=== PATIENT | male | born 1960 | race Caucasian/White ===

== ENCOUNTER → 2023-12-11 07:16 | Outpatient (REF) | payer OTHER, SELFPAY ==
[2023-12-11 08:49] LABS: Blood Urea Nitrogen 21 mg/dl (9-20); Calcium 9.8 mg/dl (8.4-10.2); Carbon Dioxide 28 mmol/L (22-30); Chloride 105 mmol/L (98-107); Glucose 119 mg/dl (70-99); Potassium 4.6 mmol/L (3.5-5.1); Sodium 141 mmol/L (135-145); eGFR > 60.00
== END ==
LOC: REG 07:16
PROVIDERS: ATTENDING PHYSICIAN Internal Medicine Cardiovascular Disease
DX: I10 Essential (primary) hypertension (principal)
CPT/HCPCS: 36415; 80048

== ENCOUNTER → 2023-12-13 14:31 | Outpatient (REF) | payer OTHER, SELFPAY | LOC: RCS 14:31 | PROVIDERS: ATTENDING PHYSICIAN Internal Medicine Cardiovascular Disease; FAMILY PHYSICIAN Family Medicine | DX: I34.0 Nonrheumatic mitral (valve) insufficiency (principal); I25.5 Ischemic cardiomyopathy; I35.1 Nonrheumatic aortic (valve) insufficiency | CPT/HCPCS: 93306 ==

== ENCOUNTER → 2023-12-14 13:32 | Outpatient (REF) | payer OTHER, SELFPAY | LOC: RAD 13:32 | PROVIDERS: ATTENDING PHYSICIAN Internal Medicine Cardiovascular Disease; FAMILY PHYSICIAN Nurse Practitioner Family | DX: N28.89 Other specified disorders of kidney and ureter (principal) | CPT/HCPCS: 74178; Q9967 ==

== ENCOUNTER → 2024-02-14 08:08 | Outpatient (REF) | payer OTHER, SELFPAY | LOC: DHCBC/DCA 08:08 | PROVIDERS: ATTENDING PHYSICIAN Internal Medicine Cardiovascular Disease; FAMILY PHYSICIAN Family Medicine | DX: E78.5 Hyperlipidemia, unspecified (principal); I25.2 Old myocardial infarction; I25.10 Atherosclerotic heart disease of native coronary artery without angina pectoris; R93.1 Abnormal findings on diagnostic imaging of heart and coronary circulation | CPT/HCPCS: 78452; 93017; A9500; J2785 ==

== ENCOUNTER 2024-07-03 07:39 | Day surgery (SDC) | payer OTHER, SELFPAY ==
[2024-06-12 08:46] LABS: Hematocrit 43.3 % (39.0-52.0); Hemoglobin 14.8 g/dL (13.0-18.0); Mean Corp Hgb Conc. 34.2 g/dL (33.0-37.0); Mean Corpuscular Hgb 30.6 pg (27.0-31.0); Mean Corpuscular Volume 89.5 fL (80.0-94.0); Mean Platelet Volume 9.9 fL (7.4-10.4); Platelet Count 210 10^3/uL (130-400); Red Blood Cell Count 4.84 10^6/uL (4.70-6.10); Red Cell Dist. Width 12.7 % (11.5-14.5); White Blood Cell Count 7.1 10^3/uL (4.8-10.8)
[2024-06-12 09:26] LABS: Blood Urea Nitrogen 23 mg/dl (9-20); Calcium 8.8 mg/dl (8.4-10.2); Carbon Dioxide 26 mmol/L (22-30); Chloride 106 mmol/L (98-107); Glucose 104 mg/dl (70-99); Potassium 4.2 mmol/L (3.5-5.1); Sodium 139 mmol/L (135-145); eGFR > 60.00
[2024-06-12 13:39] VITALS: BMI 26.2
[2024-07-03] VITALS (7 sets, daily range): BP systolic 121–137; BP diastolic 60–73; BMI 26.2
--- NOTE | 2024-07-03 06:43 | HP.FOC2 ---
Focused History & Physical
Chief Complaint
HPI:
Chief Complaint: Left inguinal hernia
HPI / Indication for Planned Procedure: Patient is a 63-year-old male recently seen in outpatient surgical evaluation secondary to a large left inguinal hernia containing sigmoid colon. Patient has been following his hernia for many years. It has
slowly increased in size over the years and extends down into the left scrotal region. Hernia is always protuberant. He rarely has episodes of pain or discomfort in the area. CT imaging confirmed a large left indirect inguinal scrotal hernia
containing unobstructed loop of sigmoid colon without associated inflammatory or obstructive changes.
Relevant Past Medical History: Other (Mitral regurgitation, history of [place], ischemic cardiomyopathy, hyperlipidemia, hypertension, CAD)
Relevant Social History: Negative
Relevant Family History: Negative
Relevant Past Surgical History: Positive for (Cardiac catheterization with stent placement)
Review of Systems
Review of Pertinent Systems: All Systems Negative
Medication
See Medication form for detailed medications: Yes
Medication List (including Herbals & OTC):
aspirin 81 mg tablet,delayed release 81 mg PO DAILY ##0 03/11/15
amlodipine 10 mg tablet 10 mg PO HS 03/09/24
carvedilol 25 mg tablet 25 mg PO BID 03/09/24
doxazosin 1 mg tablet 1 mg PO HS 03/09/24
lisinopril 20 mg tablet 20 mg PO BID 03/09/24
Allergy Medicine 1 tab PO DAILY 06/26/24
Vitamin C 1 tab PO DAILY 06/26/24
famotidine 20 mg tablet 20 mg PO DAILY 06/26/24
multivitamin 1 tab PO DAILY 06/26/24
rosuvastatin 10 mg tablet 10 mg PO DAILY 06/26/24
spironolactone 25 mg tablet 12.5 mg PO HS 06/26/24
Medications Reviewed: Yes
Allergies and Reactions
Patient has Allergies: Yes
Noted Allergies and Reactions:
Allergy/AdvReac Type Severity Reaction Status Date / Time
No Known Drug Allergies Allergy NA Verified 06/26/24 08:45
seasonal allergies Allergy congestion, Uncoded 06/26/24 08:45
etc.
Pertinent Physical Exam
All Other Systems: Negative
Head/Neck: Normal
Lungs: Normal
Heart: Normal
Abdomen: Other (Large left inguinal scrotal hernia. Did not attempt to reduce.)
Extremities: Normal
Neurological: Normal
Diagnosis / Assessment
63-year-old male presenting for scheduled operative correction symptomatic abdominal hernia
Plan / Procedure
Robotic assisted laparoscopic repair left inguinal hernia with mesh
Anesthesia/Sedation to be done by Anesthesia Provider: Yes
--- NOTE | 2024-07-03 08:00 | W.SUR.PREOP ---
Pre-Operative Surgical Note
-
I have examined this patient prior to the performance of the scheduled procedure.
The patient's condition is unchanged from the time of the current History and
Physical and the patient is able to undergo the scheduled procedure.
[2024-07-03] MEDS: TYLENOL 1000 MG PO (08:14)
[2024-07-03] MEDS: NORMOSOL-R/PLASMALYTE-A 1000 IV (08:14)
--- NOTE | 2024-07-03 11:06 | W.IMMPOSTOP ---
Addendum entered and electronically signed by Reynold Suero MD 07/03/24 16:33:
#[id number]
Original Note:
Surgical Immed Post Op Note
-
Primary Surgeon: Reynold Suero MD
Assisting Surgeon: Jan Mendez MD PGY 1
Trinh MORILLO
Pre-op Diagnosis: Incarcerated left inguinal hernia
Post-op Diagnosis: Incarcerated left inguinal hernia
Procedure Performed: Robotic assisted laparoscopic SPRING repair left inguinal hernia with mesh; 3D max extra-large mid weight
Anesthesia Type: GETA +0.25% Marcaine
Specimen / Cultures: None
Estimated Blood Loss: 12 mL
Complications: None immediate
Operative Findings: Large left inguinal scrotal hernia, indirect, slider containing sigmoid colon and mesentery, chronically incarcerated but not obstructing. Entire hernia sac and contents reduced. 3 to 4 fingerbreadth indirect inguinal defect.
Left direct and femoral space normal. 3D max extra-large mid weight mesh repair secured with 2-0 Vicryl to Femi's and anteriorly just above pubic symphysis. No lipoma of cord structures. Epiploic appendage adhesions to hernia sac lysed. Hernia
sac ligated at neck with 2-0 Vicryl suture ligature. No additional incidental findings noted.
== END 2024-07-03 12:32 | disposition home or self-care (01) ==
LOC: SDS 07:39
PROVIDERS: ATTENDING PHYSICIAN Surgery; FAMILY PHYSICIAN Family Medicine
DX: K40.30 Unilateral inguinal hernia, with obstruction, without gangrene, not specified as recurrent (principal)
CPT/HCPCS: 49650; 36415; 80048; 85027; C1781

== ENCOUNTER → 2025-05-15 08:23 | Outpatient (REF) | payer OTHER, SELFPAY | LOC: MRI 08:23 | PROVIDERS: ATTENDING PHYSICIAN Family Medicine; FAMILY PHYSICIAN Nurse Practitioner Family | DX: I25.10 Atherosclerotic heart disease of native coronary artery without angina pectoris (principal); I10 Essential (primary) hypertension; I25.5 Ischemic cardiomyopathy; Z95.5 Presence of coronary angioplasty implant and graft | CPT/HCPCS: 70030; 75561; 75565; A9585 ==